=== PATIENT | female | born 1995 ===

== ENCOUNTER 2023-06-05 19:08 | Outpatient (REF) | payer OTHER, SELFPAY ==
[2023-06-05 21:28] LABS: Abs Immature Grans 0.01 10^3/uL (0.0-0.06); Absolute Basophil Count 0.09 10^3/uL (0.0-0.2); Absolute Eosinophil Count 0.06 10^3/uL (0.0-0.7); Absolute Monocyte Count 0.31 10^3/uL (0.1-0.8); Absolute Neutrophil Count 3.92 10^3/uL (1.2-6.7); Basophils % 1.3; Eosinophils % 0.9; HCT 42.3 % (36.0-46.0); HGB 12.8 g/dL (11.2-15.7); Immature Grans % 0.1; Lymphocytes % 34.4; MCH 22.3 pg (27.0-33.0); MCHC 30.3 % (32.0-36.0); MCV 74 fL (80-95); MPV 11.5 fL (8.0-11.0); Monocytes % 4.6; Neutrophils % 58.7; Platelet Count 322 10^3/uL (130-400); RBC 5.75 10^6/uL (3.93-5.22); RDW 14.6 % (11.7-14.6); RDW-SD 38.5 fL; WBC 6.69 10^3/uL (4.4-10.8)
[2023-06-05 21:45] LABS: Diff Comment RBC Morph Reviewed; Microcytosis 1+
[2023-06-05 21:51] LABS: ALT 25 U/L (14-59); AST 11 U/L (15-37); Albumin 3.4 g/dL (3.4-5.0); Alkaline Phosphatase 157 U/L (46-116); Anion Gap 9.3 mmol/L (3-11); BUN 10 mg/dL (7-18); Bilirubin, Total 0.3 mg/dL (0.2-1.0); CO2 24.7 mmol/L (21.0-32.0); CREATININE 0.9 mg/dL (0.55-1.02); Calcium 8.8 mg/dL (8.5-10.1); Chloride 97 mmol/L (98-107); Estimated GFR 88.75 (mL/min/1.73m2); Potassium 4.1 mmol/L (3.5-5.1); Sodium 131 mmol/L (136-145); TSH (W/Ref FT4) 1.25 uIU/mL (0.36-3.74); Total Protein 7.6 g/dL (6.4-8.2)
[2023-06-05 22:03] LABS: Glucose 714 mg/dL (74-106); Hemoglobin A1C > 13.0 % (<5.7)
== END 2023-06-05 19:09 | disposition home or self-care (01) ==
LOC: NCHCN 19:08
PROVIDERS: Visit Provider Family Medicine
DX: E11.9 Type 2 diabetes mellitus without complications (principal); R53.83 Other fatigue; Z13.0 Encounter for screening for diseases of the blood and blood-forming organs and certain disorders involving the immune mechanism
CPT/HCPCS: 80053; 83036; 84443; 85025

== ENCOUNTER 2023-07-03 10:52 | Outpatient (REF) | payer OTHER, SELFPAY ==
[2023-07-03 15:13] LABS: ALT 29 U/L (14-59); AST 14 U/L (15-37); Albumin 3.7 g/dL (3.4-5.0); Alkaline Phosphatase 127 U/L (46-116); Anion Gap 10.9 mmol/L (3-11); BUN 9 mg/dL (7-18); Bilirubin, Total 0.4 mg/dL (0.2-1.0); CO2 25.1 mmol/L (21.0-32.0); CREATININE 0.7 mg/dL (0.55-1.02); Calcium 8.9 mg/dL (8.5-10.1); Chloride 101 mmol/L (98-107); Estimated GFR 119.24 (mL/min/1.73m2); Glucose 426 mg/dL (74-106); Potassium 4.2 mmol/L (3.5-5.1); Sodium 137 mmol/L (136-145)
[2023-07-03 16:07] LABS: Hemoglobin A1C > 13.0 % (<5.7); Vitamin D 25 Total 15.3 ng/mL (30-100)
== END 2023-07-03 10:53 | disposition home or self-care (01) ==
LOC: NCHCN 10:52
PROVIDERS: PCP Family Medicine; Visit Provider Family Medicine
DX: E55.9 Vitamin D deficiency, unspecified (principal); E11.9 Type 2 diabetes mellitus without complications
CPT/HCPCS: 80053; 82306; 83036

== ENCOUNTER 2023-08-08 14:45 | Outpatient (REF) | payer OTHER, SELFPAY | END 2023-08-08 14:46 | disposition home or self-care (01) | LOC: NCHCN 14:45 | PROVIDERS: PCP Family Medicine; Visit Provider Family Medicine | DX: R30.0 Dysuria (principal) | CPT/HCPCS: 87086 ==

== ENCOUNTER 2024-01-22 13:21 | Outpatient (REF) | payer OTHER, SELFPAY ==
--- OUTSIDE RECORDS SUMMARY | 2024-01-22 13:29 | XMS_ITS | Encounter Summary ---
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 Denies urinary sxs. nausea Encounter Details Date Type Department Care Team (Late st Contact Info) Description 01/14/2023 14:10 EST - 01/14/2023 19:32 EST Emergency [facility] [address] [place] [address] Tushar Davalos PA-C [address] [place] [address] Urinary tract infection in female (Primary Dx); Biliary calculus of other site without obstruction; Right ovarian cyst Discharge Disposition: Home or Self Care Social History Tobacco Use Types Packs/Day Years Used Date Smoking Tobacco: Never Assessed Comments Unknown Sex and Gender Information Value Date Recorded Sex Assigned at Not on file Legal Sex Female 13:00 EST Gender Identity Female 05/20/2023 16:58 EDT Sexual Orientation Not on file documented as of this encounter Last Filed Vital Signs Vital Sign Reading Time Taken Comments Blood Pressure 149/102 01/14/2023 1800 EST Pulse 84 01/14/2023 1800 EST Temperature 36.2 ??C (97.1 ??F) 01/14/2023 1326 EST Respiratory Rate 16 01/14/2023 1800 EST Oxygen Saturation 100% 01/14/2023 1800 EST Inhaled Oxygen Concentration - - Weight - - Height - - Body Mass Index - - documented in this encounter Functional Status * Are you deaf or do you have serious difficulty hearing? Answer Date of Assessment Author No 01/14/2023 13:24 EST oDra Lin RN documented as of this encounter Discharge Instructions * Discharge Instructions* Tushar Davalos PA-C - 01/14/2023 18:30 EST You were seen today for left flank pain. Your work-up included laboratory testing and a CT scan of the abdomen and pelvis. Your laboratory results are reassuring and do not suggest a rampant systemic infection. We are treating you with oral antibiotics and recommend follow-up if your symptoms do not improve. If you develop unrelenting nausea or vomiting we recommend returning to the ED for further evaluation. Hydrate with plenty of fluids and get plenty of rest. We will place a call to the care management team to reach out to you to discuss a primary care physician. * Attachments The following attachments cannot be sent through Care Everywhere. * Ovarian Cyst: Functional (Afghan) * UTI (Urinary Tract Infection): Female (Afghan) documented in this encounter Medications at Time of Discharge traMADol (ULTRAM) 50 mg tablet Take 1 Tablet by mouth every 6 hours as needed for Pain. Daily Max: 200 mg 6 Tablet 01/14/2023 cephalexin (KEFLEX) 500 mg capsule Take 1 Capsule by mouth 4 times daily for 7 days. 28 Capsule 01/14/2023 01/21/2023 documented as of this encounter Ordered Prescriptions Prescription Sig Dispense Quantity Refills Last Filled Start Date End Date traMADol (ULTRAM) 50 mg tablet Take 1 Tablet by mouth every 6 hours as needed for Pain. Daily Max: 200 mg 6 Tablet 01/14/2023 cephalexin (KEFLEX) 500 mg capsule Take 1 Capsule by mouth 4 times daily for 7 days. 28 Capsule 01/14/2023 documented in this encounter Discharge Disposition Disposition Code Departure Means Destination Comment s Home or Self Prison documented in this encounter ED Notes * Sydney Melendrez RN - 01/14/2023 1745 EST Pt states pain is much better, has no needs at this time. * Sydney Melendrez RN - 01/14/2023 1605 EST Pt currently sleeping, chest rise and fall observed, call leary within reach. * Sydney Melendrez RN - 01/14/2023 1536 EST Pt c/o 8/10 abdominal/flank pain. MD aware, water and medications given. * Tushar Davalos PA-C - 01/14/2023 1300 EST Emergency Department Visit Medical Decision Making 27-year-old female type II diabetic presenting to the ED with complaints of left flank pain. Pain is described as colicky and radiating from her left flank to her left groin. Denies any hematuria, dysuria. Denies any fevers, chills. Endorses nausea with vomiting. On exam she is nontoxic-appearing yet in mild to moderate distress. She has left-sided CVA tenderness with no abdominal pain with palpation. Labs show no leukocytosis and no elevated CRP. Lipase is normal. Urine specimen is positive for nitrites, leuk esterase, ketones with WBCs between 10 and 50,000, cloudy color and many bacteria. Initiated treatment with 1 g of ceftriaxone and IV fluids. Ketorolac administered. Patient continued to experience pain and was given 2 mg of IV morphine. Given her persistent pain a CT abdomen pelvis was added to the testing. No evidence of any kidney stones or other acute intra-abdominal findings. Patient is new to the area and is unsure whether or not she will stay in the area. She does not have a primary care doctor. We discussed having care management team reach out to inquire if she is in search of a primary care doctor or she will be moving back to her home. Relevant Data as of 01/14/23 2339 Mon Jan 14, 2023 1536 Lipase: 139 [AH] 1536 Sodium(!): 133 [AH] 1536 Glucose, Serum(!): 310 [AH] 1536 Creatinine(!): 0.45 [AH] 1536 C-Reactive Protein: <5.0 [AH] 1536 WBC: 10.17 [AH] 1536 Hemoglobin: 12.4 [AH] 1536 HCT: 38.2 [AH] 1536 WBC, UA(!): 10 - 50 [AH] 1536 Bacteria, UA(!): Many [AH] 1536 Clarity, UA(!): Cloudy [AH] 1536 Glucose, UA(!): 3+ [AH] 1536 Bilirubin, UA(!): 1+ [AH] 1536 Ketones(!): 1+ [AH] 1536 Blood, UA(!): Trace [AH] 1536 Nitrite(!): Positive [AH] 1536 Leuk Esterase(!): Trace [AH] 1638 On reevaluation patient is reporting persistent left flank pain. She had received IV Toradol, IV fluids and IV ceftriaxone to treat a urinary tract infection. Given her persistent pain a CT abdomen pelvis study was obtained to rule out any other acute pathology which could complicate her presentation. [] 2336 IMPRESSION Cholelithiasis. Right ovarian cyst. This can be followed up in 1 month's time with a pelvic ultrasound to assess for stability or resolution. [] Relevant Data User Index [] Tushar Davalos PA-C Laboratory data was reviewed. Medical Decision Making Biliary calculus of other site without obstruction: acute illness or injury Right ovarian cyst: acute illness or injury Urinary tract infection in female: acute illness or injury Amount and/or Complexity of Data Reviewed Labs: ordered. Decision-making details documented in ED Course. Radiology: ordered. Risk Prescription drug management. Final diagnoses: Urinary tract infection in female Biliary calculus of other site without obstruction Right ovarian cyst Disposition: Discharged Chief complaint: Left flank pain ANITRA Marte is a 27 y.o. female with history of type 2 diabetes who presents to the ED for left flank pain rating to her left groin beginning this morning. She states that the pain woke her up fromsleep. Denies any dysuria, hematuria. She does endorse nausea and vomiting and experienced an episode of vomiting here in the emergency department shortly before evaluation. Endorses prior history ofUTIs but states this does not feel similar. No reported fevers. History was provided by: Patient Records reviewed include: None Patient's pertinent PMH, FH, SH were reviewed and edited as necessary. Nursing notes reviewed. A medical screening exam was performed. Physical Exam BP (!) 149/102 Pulse 84 Temp 36.2 ??C (97.1 ??F) Resp 16 SpO2 100% Physical Exam Vitals and nursing note reviewed. Constitutional: General: She is not in acute distress. Appearance: Normal appearance. HENT: Head: Normocephalic and atraumatic. Nose: Nose normal. Mouth/Throat: Mouth: Mucous membranes are moist. Eyes: Extraocular Movements: Extraocular movements intact. Pupils: Pupils are equal, round, and reactive to light. Cardiovascular: Rate and Rhythm: Normal rate and regular rhythm. Pulses: Normal pulses. Heart sounds: Normal heart sounds. Pulmonary: Effort: Pulmonary effort is normal. No respiratory distress. Breath sounds: Normal breath sounds. Abdominal: Palpations: Abdomen is soft. There is no mass. Tenderness: There is no abdominal tenderness. There is left CVA tenderness. There is no right CVA tenderness. Musculoskeletal: General: No swelling or deformity. Normal range of motion. Cervical back: Normal range of motion and neck supple. Skin: General: Skin is warm and dry. Neurological: General: No focal deficit present. Mental Status: She is alert and oriented to person, place, and time. Psychiatric: Mood and Affect: Mood normal. Behavior: Behavior normal. Procedures Procedures documented in this encounter Miscellaneous Notes * Result Encounter Note - Tushar Davalos PA-C - 01/14/2023 193 EST Appropriate tx per sensitivities. documented in this encounter Plan of Treatment Not on file documented as of this encounter Procedures Procedure Name Priority Date/Time Associated Diagnosis Comments CT ABDOMEN PELVIS W CONTRAST STAT 01/14/2023 16:42 EST COMPLETE BLOOD COUNT AND DIFFERENTIAL STAT 01/14/2023 14:58 EST C REACTIVE PROTEIN STAT 01/14/2023 14 :58 EST LIPASE STAT 01/14/2023 14:58 EST COMPREHENSIVE METABOLIC PANEL (CMP) STAT 01/14/2023 14:58 EST POCT TEST, VISUAL READ STAT 01/14/2023 14:39 EST POCT URINE DIPSTICK, VISUAL READ STAT 01/14/2023 14:36 EST UA WITH REFLEX SEDIMENT (CULTURE IF POS) STAT 01/14/2023 14:32 EST UA SEDIMENT + REFLEX TO CULTURE STAT 01/14/2023 14:32 EST BACTERIAL CULTURE, URINE Today 01/14/2023 14:32 EST documented in this encounter Results * CT ABDOMEN PELVIS W CONTRAST (01/14/2023 16:42 EST) Anatomical Region Laterality Modality Body, Abdomen, Pelvis, Abdomen and Pelvis Computed Tomography 01/14/2023 16:2 8 EST Impressions 01/14/2023 17:11 EST Cholelithiasis. ??Right ovarian cyst. ??This can be followed up in 1 month's time with a pelvic ultrasound to assess for stability or resolution. THIS DOCUMENT HAS BEEN ELECTRONICALLY SIGNED BY CHI CERVANTES MD FOR ANY QUESTIONS OR CONCERNS REGARDING THIS REPORT PLEASE CALL [facility] AT [phone] Narrative 01/14/2023 17:11 EST PROCEDURE INFORMATION: Exam: CT Abdomen And Pelvis With Contrast Exam date and time: 01/14/2023 4:28 PM Age: 27 years old Clinical indication: Abdominal pain; Flank; Left; Additional info: Left flank pain, UTI, dm TECHNIQUE: Imaging protocol: Computed tomography of the abdomen and pelvis with contrast. Radiation optimization: All CT scans at this facility use at least one of these dose optimization techniques: automated exposure control; mA and/or kV adjustment per patient size (includes targeted exams where dose is matched to clinical indication); or iterative reconstruction. Contrast material: OMNI 350; Contrast volume: 100 ml; Contrast route: INTRAVENOUS (IV); ?? REPORTING DATA: Count of CT and Cardiac NM exams in prior 12 months: This patient has received 0 known CTs and 0 known cardiac nuclear medicine studies in the 12 months prior to the current study. COMPARISON: No relevant prior studies available. FINDINGS: Lungs: The visualized lung bases are within normal limits. Heart: The visualized portions of the heart and pericardium within normal limits. Liver: The liver is within normal limits. Gallbladder and bile ducts: There are innumerable gallstones within the gallbladder. Pancreas: The pancreas is unremarkable. Spleen: The spleen is unremarkable. Adrenal glands: The adrenal glands are within normal limits. Kidneys and ureters: The kidneys are unremarkable. Stomach and bowel: Unremarkable. No obstruction. No mucosal thickening. Appendix: No evidence of appendicitis. Intraperitoneal space: Unremarkable. No free air. No significant fluid collection. Vasculature: Unremarkable. No abdominal aortic aneurysm. Lymph nodes: ??No enlarged lymph nodes. Urinary bladder: The urinary bladder is within normal limits. Reproductive: The uterus is unremarkable. The left ovary is within normal limits. There is a right ovarian cyst measuring 4.4 x 4.3 cm. There are slight degenerative changes of both hips. Bones/joints: There are slight degenerative changes of the thoracic and lumbar spines. Soft tissues: Unremarkable. Procedure Note Chi Cervantes MD - 01/14/2023 PROCEDURE INFORMATION: Exam: CT Abdomen And Pelvis With Contrast Exam date and time: 01/14/2023 4:28 PM Age: 27 years old Clinical indication: Abdominal pain; Flank; Left; Additional info: Left flank pain, UTI, dm TECHNIQUE: Imaging protocol: Computed tomography of the abdomen and pelvis with contrast. Radiation optimization: All CT scans at this facility use at least one of these dose optimization techniques: automated exposure control; mA and/or kV adjustment per patient size (includes targeted exams where dose is matched to clinical indication); or iterative reconstruction. Contrast material: OMNI 350; Contrast volume: 100 ml; Contrast route: INTRAVENOUS (IV); REPORTING DATA: Count of CT and Cardiac NM exams in prior 12 months: This patient has received 0 known CTs and 0 known cardiac nuclear medicine studies in the 12 months prior to the current study. COMPARISON: No relevant prior studies available. FINDINGS: Lungs: The visualized lung bases are within normal limits. Heart: The visualized portions of the heart and pericardium within normal limits. Liver: The liver is within normal limits. Gallbladder and bile ducts: There are innumerable gallstones within the gallbladder. Pancreas: The pancreas is unremarkable. Spleen: The spleen is unremarkable. Adrenal glands: The adrenal glands are within normal limits. Kidneys and ureters: The kidneys are unremarkable. Stomach and bowel: Unremarkable. No obstruction. No mucosal thickening. Appendix: No evidence of appendicitis. Intraperitoneal space: Unremarkable. No free air. No significant fluid collection. Vasculature: Unremarkable. No abdominal aortic aneurysm. Lymph nodes: No enlarged lymph nodes. Urinary bladder: The urinary bladder is within normal limits. Reproductive: The uterus is unremarkable. The left ovary is within normal limits. There is a right ovarian cyst measuring 4.4 x 4.3 cm. There are slight degenerative changes of both hips. Bones/joints: There are slight degenerative changes of the thoracic and lumbar spines. Soft tissues: Unremarkable. IMPRESSION Cholelithiasis. Right ovarian cyst. This can be followed up in 1 month's time with a pelvic ultrasound to assess for stability or resolution. THIS DOCUMENT HAS BEEN ELECTRONICALLY SIGNED BY CHI CERVANTES MD FOR ANY QUESTIONS OR CONCERNS REGARDING THIS REPORT PLEASE CALL [facility] [phone] Tushar Davalos PA-C IMG CT ORDERABLES Final Result * LIPASE (01/14/2023 14:58 EST) Lipase 139 <251 U/L 01/14/2023 15:20 EST [facility] Blood VENOUS BLOOD / Unknown Venipuncture / Unknown 01/14/2023 14:58 EST 01/14/2023 15:03 EST Tushar Hare PA-C CHEMISTRY & BLOOD GAS ORDERABLES Final Result [facility] [address] [place] [address] * C REACTIVE PROTEIN (01/14/2023 14:58 EST) Pathologist [facility] C-Reactive Protein <5.0 <10.0 mg/L 01/14/2023 15:20 [facility] Blood VENOUS BLOOD / Unknown Venipuncture / Unknown 01/14/2023 14:58 EST 01/14/2023 15:03 EST Tushar Davalos PA-C CHEMISTRY & BLOOD GAS ORDERABLES Final Result [facility] [address] [place] [address] * (ABNORMAL) COMPREHENSIVE METABOLIC PANEL (CMP) (01/14/2023 14:58 EST) [facility] Sodium 133(L) 136 - 145 mmol/L 01/14/2023 15:20 [facility] Potassium 4.4 3.5 - 5.0 mmol/L 01/14/2023 15:20 [facility] Chloride 98 96 - 110 mmol/L 01/14/2023 15:20 [facility] CO2 Total 27 22 - 32 mmol/L 01/14/2023 15:20 [facility] Glucose 310(H) 70 - 99 mg/dl 01/14/2023 15:20 [facility] BUN 10 10 - 26 mg/dL 01/14/2023 15:20 [facility] Creatinine 0.45(L) 0.52 - 1.04 mg/dL 01/14/2023 15:20 [facility] eGFR 133 >60 mL/min/1.7 3m2 01/14/2023 15:20 [facility] Total Protein 7.3 6.3 - 8.2 g/dL 01/14/2023 15:20 [facility] Albumin 3.9 3.4 - 4.9 g/dL 01/14/2023 15:20 [facility] Alkaline Phosphatase 80 38 - 126 U/L 01/14/2023 15:20 [facility] AST 17 15 - 46 U/L 01/14/2023 15:20 [facility] ALT 22 <35 U/L 01/14/2023 15:20 [facility] Bilirubin, Total 0.6 <1.4 mg/dL 01/15/20 15:20 [facility] Calcium 8.7 8.5 - 10.5 mg/dL 01/14/2023 15:20 [facility] Albumin/Globulin Ratio 1.1 1.0 - 2.5 g/dL 01/14/2023 15:20 [facility] Anion Gap 8 5 - 14 mmol/L 01/14/2023 15:20 [facility] Blood VENOUS BLOOD / Unknown Venipuncture / Unknown 01/14/2023 14:58 EST 01/14/2023 15:03 EST us Tushar Davalos PA-C CHEMISTRY & BLOOD GAS ORDERABLES Final Result Performing Organization Address City/State/[facility] Co de Phone Number [facility] [address] [place] [address] * (ABNORMAL) COMPLETE BLOOD COUNT AND DIFFERENTIAL (01/14/2023 14:58 EST) WBC 10.17 4.00 - 12.40 K/cmm 01/14/2023 15:08 [facility] RBC 5.13(H) 3.86 - 5.04 M/cmm 01/14/2023 15:08 [facility] Hemoglobin 12.4 11.6 - 15.2 g/dL 01/14/2023 15:08 [facility] HCT 38.2 34.9 - 44.4 % 01/14/2023 15:08 [facility] MCV 75(L) 81 - 98 fL 01/14/2023 15:08 [facility] MCH 24.2(L) 26.7 - 33.3 pg 01/14/2023 15:08 [facility] Hypochromia 1+ 01/14/2023 15:08 [facility] MCHC 32.5 32.1 - 35.9 g/dL 01/14/2023 15:08 [facility] RDW-CV 14.2 <14.7 % 01/14/2023 15:08 [facility] RDW-SD 37.8 <50.4 fl 01/14/2023 15:08 [facility] Anisocytosis 01/14/2023 15:08 [facility] PLT 338 141 - 377 K/cmm 01/14/2023 15:08 [facility] MPV 11.0 9.5 - 12.7 fL 01/14/2023 15:08 [facility] % Neutrophils 80.4 % 01/14/2023 15:08 [facility] % Lymphocytes 15.3 % 01/14/2023 15:08 [facility] % Monocytes 3.2 % 01/14/2023 15:08 [facility] % Eosinophils 0.3 % 01/14/2023 15:08 [facility] % Basophils 0.5 % 01/14/2023 15:08 [facility] % Immature Grans 0.3 % 01/15/20 15:08 [facility] Absolute Neutrophils 8.17 2.20 - 8.85 K/cmm 01/14/2023 15:08 [facility] Absolute Lymphocytes 1.56 1.09 - 3.30 K/cmm 01/14/2023 15:08 [facility] Absolute Monocytes 0.33 0.10 - 0.80 K/cmm 01/14/2023 15:08 [facility] Absolute Eosinophils 0.03 0.03 - 0.61 K/cmm 01/14/2023 15:08 [facility] ABS Basophils 0.05 0.01 - 0.11 K/cmm 01/14/2023 15:08 [facility] Absolute Immature Grans 0.03 0.00 - 0.06 K/cmm 01/14/2023 15:08 [facility] Type of Differential: Auto 01/14/2023 15:08 [facility] Blood VENOUS BLOOD / Unknown Venipuncture / Unknown 01/14/2023 14:58 EST 01/14/2023 15:03 EST [employer] PACKAGES & DNA PROBE ORDERABLES Final Result [facility] [address] [place] [address] * POCT TEST, VISUAL READ (01/14/2023 14:39 EST) Test, Urine, POC Negative Negative Control Line Present Yes Background Clear? Yes Urine URINE SPECIMEN OBTAINED BY CLEAN CATCH PROCEDURE / Unknown 01/14/2023 14:39 EST [employer] POINT OF CARE TEST ORDERABLES Fi nal Result * (ABNORMAL) POCT URINE DIPSTICK, VISUAL READ (01/14/2023 14:36 EST) Color, UA Yellow Yellow, Colorless Clarity, UA Cloudy(A) Clear Glucose, UA 3+(A) Negative mg/dL Bilirubin, UA Negative Negative Ketones, UA 1+(A) Negative mg/dL Spec Grav, UA 1.020 1.001 - 1.030 Blood, UA Trace(A) Negative pH, UA 6.0 <=8.5 Protein, UA Negative Negative mg/dL Urobilinogen, UA 0.2 0.2 - 1.0 E.U./dL Nitrite, UA Positive(A) Negative Leuk Esterase Trace(A) Negative Comment Urine URINE SPECIMEN OBTAINED BY CLEAN CATCH PROCEDURE / Unknown 01/14/2023 14:36 EST [employer] POINT OF CARE TEST ORDERABLES Fi nal Result * (ABNORMAL) BACTERIAL CULTURE, URINE (01/14/2023 14:32 EST) Pathologist [facility] Organism ID Greater than 100,000 CFU/ml Escherichia coli(A) VITEK SUSCEPTIBILITY 01/16/2023 7:40 EST [facility] Comment: Cefazolin susceptibility results can be used to predict susceptibility results for the following oral cephalosporins when used for therapy of uncomplicated UTI's due to E.coli, K.pneumoniae and P.mirabilis: cefaclor, cefdinir, cefpodoxime, cefprozil, cefuroxime, cephalexin and loracarbef. ??Please note that only cefdinir, cefpodoxime, cefuroxime and cephalexin are on the [facility] inpatient formulary. Urine URINE SPECIMEN OBTAINED BY CLEAN CATCH PROCEDURE / Unknown Urine Collect / Unknown 01/14/2023 14:32 EST 01/14/2023 15:01 EST Narrative Organism Antibiotic Method Susceptibility Escherichia coli Amoxicillin Clavulan ic acid VITEK SUSCEPTIBILITY <=2 ug/mL: Susceptible Escherichia coli Ampicillin VITEK SUSCEPTIBILITY <=2 ug/mL: Susceptible Escherichia coli Ampicillin Sulbactam VITEK SUSCEPTIBI LITY <=2 ug/mL: Susceptible Escherichia coli Cefazolin VITEK SUSCEPTIBILITY <=4 ug/mL: Susceptible Escherichia coli Cefepime VITEK SUSCEPTIBILITY <=1 ug/mL: Susceptible Escherichia coli Ceftriaxone VITEK SUSCEPTIBILITY <=1 ug/mL: Susceptible Escherichia coli Ciprofloxacin VITEK SUSCEPTIBILITY <=0.25 ug/mL: Susceptible Escherichia coli Ertapenem VITEK SUSCEPTIBILITY <=0.5 ug/mL: Susceptible Escherichia coli Gentamicin VITEK SUSCEPTIBILITY <=1 ug/mL: Susceptible Escherichia coli Levofloxacin VITEK SUSCEPTIBILITY <=0.12 ug/mL: Susceptible Escherichia coli Nitrofurantoin VITEK SUSCEPTIBILITY 32 ug/mL: Susceptible Escherichia coli Piperacillin Tazobactam VITEK SUSCEPT IBILITY <=4 ug/mL: Susceptible Escherichia coli Tobramycin VITEK SUSCEPTIBILITY <=1 ug/mL: Susceptible Escherichia coli Trimethoprim-Sulfame thox azole VITEK SUSCEPTIBILITY <=20 ug/mL: Susceptible us Tushar Davalos PA-C MICROBIOLOGY - GENERAL ORDERABLE S Final Result [facility] [address] [place] [address] * (ABNORMAL) UA SEDIMENT + REFLEX TO CULTURE (01/14/2023 14:32 EST) Urine RBC Count, Manual 0 - 2 0 - 2 Cells/HPF 01/14/2023 15:02 EST [facility] Urine WBC Count 10 - 50(A) 0 - 3 Cells/HPF 01/14/2023 15:02 [facility] Urine Squamous Count, Manual None Seen None Seen Cells/HPF 01/14/2023 15:02 [facility] Urine Hyaline Cast Count, Manual <=10 <=10 Casts/LPF 01/14/2023 15:02 [facility] Urine Bacteria Count, Manual Many(A) None Seen Bacteria/H PF 01/14/2023 15:02 [facility] Urine URINE SPECIMEN OBTAINED BY CLEAN CATCH PROCEDURE / Unknown Urine Collect / Unknown 01/14/2023 14:32 EST 01/14/2023 14:35 EST [facility] - 01/14/2023 15:02 [facility] Urine Sediment Analysis results are unreliable on urines that are unrefrigerated for >2 hrs or refrigerated >8 hrs. A Urine Culture test has been reflexively ordered based on result criteria from the Urine Sediment Analysis. us Tushar Davalos PA-C URINALYSIS ORDERABLES Final Resu lt [facility] [address] [place] [address] * (ABNORMAL) UA CASCADE TO CULTURE (01/14/2023 14:32 EST) Color UA Yellow Colorless, Yellow 01/14/2023 15:00 [facility] Clarity UA Cloudy(A) Clear 01/14/2023 15:00 [facility] Glucose UA 3+(A) Negative mg/dL 01/14/2023 15:00 [facility] Bilirubin UA 1+(A) Negative 01/14/2023 15:00 [facility] Ketones UA 1+(A) Negative 01/14/2023 15:00 [facility] Specific [place], Urine 1.020 1.001 - 1.030 01/14/2023 15:00 [facility] Blood UA Trace(A) Negative 01/14/2023 15:00 [facility] pH, UA 6.0 <8.5 01/14/2023 15:00 EST [facility] Protein UA Negative Negative mg/dL 01/14/2023 15:00 EST [facility] Urobilinogen UA 0.2 0.2-1.0 mg/dL mg/dL 01/14/2023 15:00 EST [facility] Nitrite UA Positive(A) Negative 01/14/2023 15:00 EST [facility] Leukocyte Esterase UA Negative Negative 01/14/2023 15:00 EST [facility] Urine URINE SPECIMEN OBTAINED BY CLEAN CATCH PROCEDURE / Unknown Urine Collect / Unknown 01/14/2023 14:32 EST 01/14/2023 14:35 EST us Tushar Davalos PA-C URINALYSIS ORDERABLES Final Resu lt [facility] [address] [place] [address] documented in this encounter Visit Diagnoses Diagnosis Urinary tract infection in female- Primary Biliary calculus of other site without obstruction Right ovarian cyst Other and unspecified ovarian cyst documented in this encounter Administered Medications Inactive Administered Medications - up to 3 most recent administrations Medication Order MAR Action Action Date Dose Rate Site cefTRIAXone (ROCEPHIN) 1,000 mg in sodium chloride (NS MBP) 50 mL IVPB 1,000 mg, intravenous, Administer over 30 Minutes, NOW X1, 1 dose, On Sat01/14/23 at 1530, Type of Therapy: Empiric, Suspected Indication (Select all that apply): UTI or pyelonephritis, STAT New Bag 01/14/2023 15:35 EST 1,000 mg iohexoL (OMNIPAQUE 350) solution 100 mL 100 mL, intravenous, Once in imaging, 1 dose, Starting on Sat01/14/23 at 1633, Until Sat01/14/23 at 1643, Routine Given 01/14/2023 16:43 EST 100 mL ketOROLAC (TORADOL) injection 15 mg 15 mg, intravenous, NOW X1, 1 dose, On Sat01/14/23 at 1600, STAT Given 01/14/2023 15:43 EST 15 mg morphine PF injection 2 mg 2 mg, intravenous, NOW X1, 1 dose, On Sat01/14/23 at 1700, STAT Given 01/14/2023 16:56 EST 2 mg ondansetron (PF) (ZOFRAN) injection 4 mg 4 mg, intravenous, NOW X1, 1 dose, On Sat01/14/23 at 1500, STAT Given 01/14/2023 15:02 EST 4 mg sodium chloride 0.9 % BOLUS 1,000 mL 1,000 mL, intravenous, NOW X1, 1 dose, On Sat01/14/23 at 1500, STAT New Bag 01/14/2023 15:03 EST 1,000 mL documented in this encounter Active and Recently Administered Medications Times are shown in EST. Scheduled Medication Order 01/12/2023 01/13/2023 01/14/2023 cefTRIAXone (ROCEPHIN) 1,000 mg in sodium chloride (NS MBP) 50 mL IVPB (COMPLETED) 1,000 mg, intravenous, Administer over 30 Minutes, NOW X1, 1 dose, On Sat01/14/23 at 1530, Type of Therapy: Empiric, Suspected Indication (Select all that apply): UTI or pyelonephritis, STAT 1535 (New Bag - Prov ider: Sydney Melendrez RN)1544 (Completed - Provider: Sydney Melendrez RN) iohexoL (OMNIPAQUE 350) solution 100 mL (COMPLETED) 100 mL, intravenous, Once in imaging, 1 dose, Starting on Sat01/14/23 at 1633, Until Sat01/14/23 at 1643, Routine 1643 (Given - Provid er: Ryann Cheng) ketOROLAC (TORADOL) injection 15 mg (COMPLETED) 15 mg, intravenous, NOW X1, 1 dose, On Sat01/14/23 at 1600, STAT 1543 (Given - Provid er: Sydney Melendrez, CHRISTIANO) morphine PF injection 2 mg (COMPLETED) 2 mg, intravenous, NOW X1, 1 dose, On Sat01/14/23 at 1700, STAT 1656 (Given - Provid er: Sydney Melendrez RN) ondansetron (PF) (ZOFRAN) injection 4 mg (COMPLETED) 4 mg, intravenous, NOW X1, 1 dose, On Sat01/14/23 at 1500, STAT 1502 (Given - Provid er: Delilah Howard RN) sodium chloride 0.9 % BOLUS 1,000 mL (COMPLETED) 1,000 mL, intravenous, NOW X1, 1 dose, On 01/14/23 at 1500, STAT 1503 (New Bag - Prov ider: Sydney Melendrez, RN)1604 (Completed - Provider: Sydney Melendrez, CHRISTIANO) documented in this encounter Care Teams Automatic Die Cutting Machine Operator Relationship Specialty Start Date End Date Out Of Area, Pcp-Mp PCP - General 01/14/23 09/28/23 documented as of this encounter
--- OUTSIDE RECORDS SUMMARY | 2024-01-22 13:29 | XMS_ITS | Encounter Summary ---
Author Organization [facility] Address [address] [place] [address] Care Team Providers Care Brine Tank Tender Name Role Phone Sanam Primary Care Provider [phone] Encounter Details Date Type Department Care Team (Late st Contact Info) Description 11/14/2023 9:55 EDT Phlebotomy Only [facility] - Outpatient Phlebotomy Drawing [address] [place] [address] [facility], [facility] [place] Vitamin D deficiency, unspecified; Type 2 diabetes mellitus without complications ([facility]); Anemia, unspecified Social History Tobacco Use Types Packs/Day Years Used Date Smoking Tobacco: Never Smokeless Tobacco: Never Alcohol Use Standard Drinks/Week Comments Not Currently 2 (1 standard drink = 0.6 oz pur e alcohol) Comments Unknown Sex and Gender Information Value Date Recorded Sex Assigned at Not on file Legal Sex Female 13:00 EST Gender Identity Female 05/20/2023 16:58 EDT Sexual Orientation Not on file documented as of this encounter Functional Status * Are you deaf or do you have serious difficulty hearing? Answer Date of Assessment Author No 01/14/2023 13:24 EST Dora Lin RN documented as of this encounter Plan of Treatment Not on file documented as of this encounter Procedures Procedure Name Priority Date/Time Associated Diagnosis Comments VITAMIN D (25,OH) Routine 11/14/2023 9:5 9 EDT Vitamin D deficiency, unspecified COMPLETE BLOOD COUNT Routine 11/14/2023 9:59 EDT Anemia, unspecified HEMOGLOBIN A1C Routine 11/14/2023 9:59 EDT Type 2 diabetes mellitus without complications ([facility]) COMPREHENSIVE METABOLIC PANEL (CMP) Routine 11/14/2023 9:59 EDT Type 2 diabetes mellitus without complications ([facility]) documented in this encounter Results * (ABNORMAL) COMPLETE BLOOD COUNT (11/14/2023 9:59 EDT) WBC 9.00 4.00 - 12.40 K/cmm 11/14/2023 10:49 [facility] RBC 5.97(H) 3.86 - 5.04 M/cmm 11/14/2023 10:49 [facility] Hemoglobin 12.5 11.6 - 15.2 g/dL 11/14/2023 10:49 [facility] HCT 42.2 34.9 - 44.4 % 11/14/2023 10:49 [facility] MCV 71(L) 81 - 98 fL 11/14/2023 10:49 [facility] MCH 20.9(L) 26.7 - 33.3 pg 11/14/2023 10:49 [facility] Hypochromia 2+ 11/14/2023 10:49 [facility] MCHC 29.6(L) 32.1 - 35.9 g/dL 11/14/2023 10:49 [facility] RDW-CV 17.0(H) <14.7 % 11/14/2023 10:49 [facility] RDW-SD 41.0 <50.4 fl 11/14/2023 10:49 [facility] Anisocytosis 1+ 11/14/2023 10:49 [facility] PLT 386(H) 141 - 377 K/cmm 11/14/2023 10:49 [facility] MPV 10.8 9.5 - 12.7 fL 11/14/2023 10:49 EDT [facility] Blood VENOUS BLOOD / Unknown Venipuncture / Unknown 11/14/2023 9:59 EDT 11/14/2023 10:46 EDT us Sanam Kwame HEMATOLOGY & PF4 ORDERABLES Anali l Result [facility] [address] [place] [address] * (ABNORMAL) COMPREHENSIVE METABOLIC PANEL (CMP) (11/14/2023 9:59 EDT) Sodium 137 136 - 145 mmol/L 11/14/2023 11:00 [facility] Potassium 4.4 3.5 - 5.0 mmol/L 11/14/2023 11:00 [facility] Chloride 103 96 - 110 mmol/L 11/14/2023 11:00 [facility] CO2 Total 25 22 - 32 mmol/L 11/14/2023 11:00 [facility] Glucose 212(H) 70 - 99 mg/dl 11/14/2023 11:00 [facility] BUN 15 10 - 26 mg/dL 11/14/2023 11:00 [facility] Creatinine 0.47(L) 0.52 - 1.04 mg/dL 11/14/2023 11:00 [facility] eGFR 131 >60 mL/min/1.7 3m2 11/14/2023 11:00 [facility] Total Protein 7.2 6.3 - 8.2 g/dL 11/14/2023 11:00 [facility] Albumin 4.0 3.4 - 4.9 g/dL 11/14/2023 11:00 [facility] Alkaline Phosphatase 116 38 - 126 U/L 11/14/2023 11:00 [facility] AST 19 15 - 46 U/L 11/14/2023 11:00 [facility] ALT 22 <35 U/L 11/14/2023 11:00 EDT [facility] Bilirubin, Total <0.5 <1.4 mg/dL 11/14/19 11:00 EDT [facility] Calcium 9.2 8.5 - 10.5 mg/dL 11/14/2023 11:00 EDT [facility] Albumin/Globulin Ratio 1.3 1.0 - 2.5 11/14/2023 11:00 EDT [facility] Anion Gap 9 5 - 14 mmol/L 11/14/2023 11:00 EDT [facility] Blood VENOUS BLOOD / Unknown Venipuncture / Unknown 11/14/2023 9:59 EDT 11/14/2023 10:23 EDT Sanam Kwame CHEMISTRY & BLOOD GAS ORDERABLES Final Result Performing Organization Address City/[facility] Co de Phone Number [facility] [address] [place] [address] * (ABNORMAL) HEMOGLOBIN A1C (11/14/2023 9:59 EDT) Hemoglobin A1c 11.4(H) <5.7 % 11/14/2023 23:20 T [facility] Comment: Glycemic Status References: Normal: ??<5.7% Pre-Diabetes: ??5.7% - 6.4% Diagnostic of Diabetes: ??> or = 6.5% (if confirmed) Est Avg Glucose 280 mg/dL 23:20 [facility] Comment:The eAG represents t he A1c result expressed as average glucose in mg/dL. Blood VENOUS BLOOD / Unknown Venipuncture / Unknown 11/14/2023 9:59 EDT 11/14/2023 10:46 EDT us Sanam Kwame CHEMISTRY & BLOOD GAS ORDERABLES Final Result Performing Organization Address City/[facility]/ZIP Co de Phone Number [facility] [address] [place], [place] [phone] * (ABNORMAL) VITAMIN D (25,OH) (11/14/2023 9:59 EDT) 25OH Vitamin D Tot 15(L) 30 - 100 ng/mL 11/14/2023 11:19 EDT [facility] Blood VENOUS BLOOD / Unknown Venipuncture / Unknown 11/14/2023 9:59 EDT 11/14/2023 10:23 EDT Sanam Puente CHEMISTRY & BLOOD GAS ORDERABLES Final Result Performing Organization Address [facility] Co de Phone Number [facility] [address] [place] [address] documented in this encounter Visit Diagnoses Diagnosis Vitamin D deficiency, unspecified Type 2 diabetes mellitus without complications ([facility]) Type II or unspecified type diabetes mellitus without mention of complication, not stated as uncontrolled Anemia, unspecified documented in this encounter Care Teams Brine Tank Tender Relationship Specialty Start Date End Date Sanam Puente [address] [place] [phone] PCP - General Family Medicine - Primary Care 09/29/23 documented as of this encounter
--- OUTSIDE RECORDS SUMMARY | 2024-01-22 13:29 | XMS_ITS | Encounter Summary ---
Author Organization [facility] Address [address] [place] [address] Care Team Providers Care Benzene Still Utility Operator Name Role Phone Out Of Area, Pcp-Mp Primary Care Provider Verónica lopez Encounter Details Date Type Department Care Team (Latest Contact Info) Description 08/09/2023 Transcribe Orders [facility] - Main [place] [address] [place] [id number] Kwame, Sanam [address] [place] [address] Vitamin D deficiency, unspecified (Primary Dx); Type 2 diabetes mellitus without complications ([facility]); Anemia, unspecified Social History Tobacco Use Types [...] on file documented as of this encounter Results * (ABNORMAL) COMPLETE BLOOD COUNT (11/14/2023 9:59 EDT) WBC 9.00 4.00 - 12.40 K/cmm 11/14/2023 10:49 EDT [facility] RBC 5.97(H) 3.86 - 5.04 M/cmm 11/14/2023 10:49 [facility] Hemoglobin 12.5 11.6 - 15.2 g/dL 11/14/2023 10:49 [facility] HCT 42.2 34.9 - 44.4 % 11/14/2023 10:49 [facility] MCV 71(L) 81 - 98 fL 11/14/2023 10:49 [facility] MCH 20.9(L) 26.7 - 33.3 pg 11/14/2023 10:49 [facility] Hypochromia 2+ 11/14/2023 10:49 [facility] MCHC 29.6(L) 32.1 - 35.9 g/dL 11/14/2023 10:49 [facility] RDW-CV 17.0(H) <14.7 % 11/14/2023 10:49 [facility] RDW-SD 41.0 <50.4 fl 11/14/2023 10:49 [facility] Anisocytosis 1+ 11/14/2023 10:49 [facility] PLT 386(H) 141 - 377 K/cmm 11/14/2023 10:49 [facility] MPV 10.8 9.5 - 12.7 fL 11/14/2023 10:49 [facility] Blood VENOUS BLOOD / Unknown Venipuncture / Unknown 11/14/2023 9:59 EDT 11/14/2023 10:46 EDT us Sanam Kwame HEMATOLOGY & PF4 ORDERABLES Anali l Result [facility] [address] [place], [place] [id number] * (ABNORMAL) COMPREHENSIVE METABOLIC PANEL (CMP) (11/14/2023 9:59 EDT) Sodium 137 136 - 145 mmol/L 11/14/2023 11:00 [facility] Potassium 4.4 3.5 - 5.0 mmol/L 11/14/2023 11:00 [facility] Chloride 103 96 - 110 mmol/L 11/14/2023 11:00 [facility] CO2 Total 25 22 - 32 mmol/L 11/14/2023 11:00 [facility] Glucose 212(H) 70 - 99 mg/dl 11/14/2023 11:00 [facility] BUN 15 10 - 26 mg/dL 11/14/2023 11:00 [facility] Creatinine 0.47(L) 0.52 - 1.04 mg/dL 11/14/2023 11:00 [facility] eGFR 131 >60 mL/min/1.7 3m2 11/14/2023 11:00 [facility] Total Protein 7.2 6.3 - 8.2 g/dL 11/14/2023 11:00 [facility] Albumin 4.0 3.4 - 4.9 g/dL 11/14/2023 11:00 [facility] Alkaline Phosphatase 116 38 - 126 U/L 11/14/2023 11:00 [facility] AST 19 15 - 46 U/L 11/14/2023 11:00 [facility] ALT 22 <35 U/L 11/14/2023 11:00 [facility] Bilirubin, Total <0.5 <1.4 mg/dL 11/14/19 11:00 [facility] Calcium 9.2 8.5 - 10.5 mg/dL 11/14/2023 11:00 [facility] Albumin/Globulin Ratio 1.3 1.0 - 2.5 11/14/2023 11:00 [facility] Anion Gap 9 5 - 14 mmol/L 11/14/2023 11:00 [facility] Blood VENOUS BLOOD / Unknown Venipuncture / Unknown 11/14/2023 9:59 EDT 11/14/2023 10:23 EDT us Sanam Kwame CHEMISTRY & BLOOD GAS ORDERABLES Final Result Performing Organization Address City/[facility]/ZIP Co de Phone Number [facility] [address] [place] [address] * (ABNORMAL) HEMOGLOBIN A1C (11/14/2023 9:59 EDT) Hemoglobin A1c 11.4(H) <5.7 % 11/14/2023 23:20 EDT [facility] Comment: Glycemic Status References: Normal: ??<5.7% Pre-Diabetes: ??5.7% - 6.4% Diagnostic of Diabetes: ??> or = 6.5% (if confirmed) Est Avg Glucose 280 mg/dL 23:20 EDT [facility] Comment:The eAG represents t he A1c result expressed as average glucose in mg/dL. Blood VENOUS BLOOD / Unknown Venipuncture / Unknown 11/14/2023 9:59 EDT 11/14/2023 10:46 EDT us Sanam Kwame CHEMISTRY & BLOOD GAS ORDERABLES Final Result [facility] [address] [place] [address] * (ABNORMAL) VITAMIN D (25,OH) (11/14/2023 9:59 EDT) 25OH Vitamin D Tot 15(L) 30 - 100 ng/mL 11/14/2023 11:19 EDT [facility] Blood VENOUS BLOOD / Unknown Venipuncture / Unknown 11/14/2023 9:59 EDT 11/14/2023 10:23 EDT us Sanam Kwame CHEMISTRY & BLOOD GAS ORDERABLES Final Result [facility] [address] [place] [address] documented in this encounter Visit Diagnoses Diagnosis Vitamin D deficiency, unspecified- Primary Type 2 diabetes mellitus without complications ([facility]) Type II or unspecified type diabetes mellitus without mention of complication, not stated as uncontrolled Anemia, unspecified documented in this encounter Care Teams Benzene Still Utility Operator Relationship Specialty Start Date End Date Out Of Area, Pcp-Mp PCP - General 01/14/23 09/28/23 documented as of this encounter
--- OUTSIDE RECORDS SUMMARY | 2024-01-22 13:29 | XMS_ITS | Clinical Summary ---
Author Organization [facility] Address [address] [place] [address] Care Team Providers Care Party Plan Salesperson Name Role Phone Sanam Puente Primary Care Provider [phone] Allergies No known active allergies Medications traMADol (ULTRAM) 50 mg tablet Take 1 Tablet by mouth every 6 hours as needed for Pain. Daily Max: 200 mg 6 Tablet 3 Active Additional Information Patient not taking.Reported on 09/29/2023 atorvastatin (LIPITOR) 20 mg tablet Take 1 Tablet by mouth daily. Active empagliflozin (JARDIANCE) 25 mg tablet Take 1 Tablet by mouth daily. Active norethindrone-e thinyl estradiol (NECON) 0.5-35 mg-mcg per tablet Take 1 Tablet by mouth daily. Active Active Problems Problem Noted Date Diagnosed Date Obesity 07/25/2023 Type 2 diabetes mellitus wit h hyperglycemia, without long-term current use of insulin ([facility]) 07/25/2023 Hyperlipidemia 07/25/2023 Encounters Date Type Department Care Team Description 11/14/2023 9:[address] [facility] - Outpatient Phlebotomy Drawing [address] [place] [address] Lab, [facility] Vitamin D deficiency, unspecified; Type 2 diabetes mellitus without complications ([facility]); Anemia, unspecified from Last 3 Months Immunizations Name Administration Dates Next Due Covid-19 mRNA Vaccine (MODER NA COVID-19) PF 0.5 ml IM (12 yrs+) 07/20/2021 Covid-19 mRNA Vaccine (PFIZE R COVID-19) PF 0.3 ml IM (12 yrs+) 02/10/2021,06/15/2020,05/25/2020 Covid-19 mRNA-LNP Bivalent V accine ([facility] BIVALENT VACCINE) PF 0.3 mL IM (12 yrs+) 07/25/2022 Medical History Medical History Date Comments Diabetes mellitus ([facility]) High cholesterol Social History Tobacco Use Types Packs/Day Years Used Date Smoking Tobacco: Never Smokeless Tobacco: Never Tobacco Cessation:Counseling Given: Not Answered Alcohol Use Standard Drinks/Week Comments Not Currently 2 (1 standard drink = 0.6 oz pur e alcohol) Comments Unknown Sex and Gender Information Value Date Recorded Sex Assigned at Not on file Legal Sex Female 13:00 EST Gender Identity Female 05/20/2023 16:58 EDT Sexual Orientation Not on file Obstetrics History Last Filed Vital Signs Vital Sign Reading Time Taken Comments Blood Pressure 141/85 09/29/2023 1025 EDT Pulse 89 09/29/2023 1025 EDT Temperature 36.5 ??C (97.7 ??F) 09/29/2023 1025 EDT Respiratory Rate 15 09/29/2023 1025 EDT Oxygen Saturation 99% 09/29/2023 1025 EDT Inhaled Oxygen Concentration - - Weight 111.1 kg (245 lb) 05/20/2023 1647 EDT Height 165.1 cm (5' 5) 05/20/2023 1647 EDT Body Mass Index 40.77 05/20/2023 1647 EDT Plan of Treatment Health Maintenance Due Date Last Done Comments Eye Exam 1993 Foot Exam 1993 Hepatitis C Screen 1993 Microalbumin/Creatinine Ratio 1993 Lipid Profile Screening (Cholesterol) 1996 Hepatitis B Vaccine (1 of 3 - 19+ 3-dose series) 2012 COVID-19 Vaccine (2023-2 5 season) 2023 07/25/2022, 07/20/2021, 02/10/2021, Additional history exists Hemoglobin A1C (Ha1C) 05/13/2024 11/14/2023 Procedures Procedure Name Priority Date/Time Associated Diagnosis Comments COMPLETE BLOOD COUNT Routine 11/14/2023 9:59 EDT Anemia, unspecified COMPREHENSIVE METABOLIC PANEL (CMP) Routine 11/14/2023 9:59 EDT Type 2 diabetes mellitus without complications (HCC-CMS) HEMOGLOBIN A1C Routine 11/14/2023 9:59 EDT Type 2 diabetes mellitus without complications ([facility]) VITAMIN D (25,OH) Routine 11/14/2023 9:5 9 EDT Vitamin D deficiency, unspecified from Last 3 Months Results * (ABNORMAL) VITAMIN D (25,OH) (11/14/2023 9:59 EDT) 25OH Vitamin D Tot 15(L) 30 - 100 ng/mL 11/14/2023 11:19 EDT [facility] Blood VENOUS BLOOD / Unknown Venipuncture / Unknown 11/14/2023 9:59 EDT 11/14/2023 10:23 EDT us Sanam Kwame CHEMISTRY & BLOOD GAS ORDERABLES Final Result [facility] [address] [place] [address] * (ABNORMAL) COMPLETE BLOOD COUNT (11/14/2023 9:59 EDT) WBC 9.00 4.00 - 12.40 K/cmm 11/14/2023 10:49 [facility] RBC 5.97(H) 3.86 - 5.04 M/cmm 11/14/2023 10:49 [facility] Hemoglobin 12.5 11.6 - 15.2 g/dL 11/14/2023 10:49 [facility] HCT 42.2 34.9 - 44.4 % 11/14/2023 10:49 [facility] MCV 71(L) 81 - 98 fL 11/14/2023 10:49 [facility] MCH 20.9(L) 26.7 - 33.3 pg 11/14/2023 10:49 [facility] Hypochromia 2+ 11/14/2023 10:49 [facility] MCHC 29.6(L) 32.1 - 35.9 g/dL 11/14/2023 10:49 [facility] RDW-CV 17.0(H) <14.7 % 11/14/2023 10:49 [facility] RDW-SD 41.0 <50.4 fl 11/14/2023 10:49 [facility] Anisocytosis 1+ 11/14/2023 10:49 [facility] PLT 386(H) 141 - 377 K/cmm 11/14/2023 10:49 [facility] MPV 10.8 9.5 - 12.7 fL 11/14/2023 10:49 [facility] Blood VENOUS BLOOD / Unknown Venipuncture / Unknown 11/14/2023 9:59 EDT 11/14/2023 10:46 EDT us Sanam Kwame HEMATOLOGY & PF4 ORDERABLES Anali l Result [facility] [address] [place] [address] * (ABNORMAL) HEMOGLOBIN A1C (11/14/2023 9:59 EDT) Hemoglobin A1c 11.4(H) <5.7 % 11/14/2023 23:20 [facility] Comment: Glycemic Status References: Normal: ??<5.7% Pre-Diabetes: ??5.7% - 6.4% Diagnostic of Diabetes: ??> or = 6.5% (if confirmed) Est Avg Glucose 280 mg/dL 23:20 [facility] Comment:The eAG represents t he A1c result expressed as average glucose in mg/dL. Blood VENOUS BLOOD / Unknown Venipuncture / Unknown 11/14/2023 9:59 EDT 11/14/2023 10:46 EDT us Sanam Kwame CHEMISTRY & BLOOD GAS ORDERABLES Final Result [facility] [address] [id number] * (ABNORMAL) COMPREHENSIVE METABOLIC PANEL (CMP) (11/14/2023 9:59 EDT) Sodium 137 136 - 145 mmol/L 11/14/2023 11:00 [facility] Potassium 4.4 3.5 - 5.0 mmol/L 11/14/2023 11:00 [facility] Chloride 103 96 - 110 mmol/L 11/14/2023 11:00 [facility] CO2 Total 25 22 - 32 mmol/L 11/14/2023 11:00 [facility] Glucose 212(H) 70 - 99 mg/dl 11/14/2023 11:00 [facility] BUN 15 10 - 26 mg/dL 11/14/2023 11:00 [facility] Creatinine 0.47(L) 0.52 - 1.04 mg/dL 11/14/2023 11:00 [facility] eGFR 131 >60 mL/min/1.7 3m2 11/14/2023 11:00 [facility] Total Protein 7.2 6.3 - 8.2 g/dL 11/14/2023 11:00 [facility] Albumin 4.0 3.4 - 4.9 g/dL 11/14/2023 11:00 [facility] Alkaline Phosphatase 116 38 - 126 U/L 11/14/2023 11:00 [facility] AST 19 15 - 46 U/L 11/14/2023 11:00 EDT [facility] ALT 22 <35 U/L 11/14/2023 11:00 EDT [facility] Bilirubin, Total <0.5 <1.4 mg/dL 11/14/19 11:00 EDT [facility] Calcium 9.2 8.5 - 10.5 mg/dL 11/14/2023 11:00 EDT [facility] Albumin/Globulin Ratio 1.3 1.0 - 2.5 11/14/2023 11:00 EDT [facility] Anion Gap 9 5 - 14 mmol/L 11/14/2023 11:00 EDT [facility] Blood VENOUS BLOOD / Unknown Venipuncture / Unknown 11/14/2023 9:59 EDT 11/14/2023 10:23 EDT us Sanam Kwame CHEMISTRY & BLOOD GAS ORDERABLES Final Result Performing Organization Address City/State/[facility] Co de Phone Number [facility] [address] [place] [phone] from Last [address] [place] [address] [place] [address] Care Teams Party Plan Salesperson Relationship Specialty Start Date End Date Sanam Puente [address] [facility] [place] [phone] PCP - General Family Medicine - Primary Care 09/29/23
--- OUTSIDE RECORDS SUMMARY | 2024-01-22 13:29 | XMS_ITS | Encounter Summary ---
Author Organization [facility] Address [address] [place] [address] Care Team Providers Care Professional Development Instructor Name Role Phone Out Of Area, Pcp-Mp Primary Care Provider Verónica lopez Reason for Visit * Reason Comments Wound Check Fell d/t ice on w morning resulting to lac over L elbow. Area now feels sore and pt noticed puss coming out of wound. No other injuries from fall. Encounter Details Date Type Department Care Team (Late st Contact Info) Description 05/20/2023 16:57 EDT - 05/20/2023 17:53 EDT Emergency [facility] Emergency Department [address] [place] [address] Cellulitis of left elbow (Primary Dx) Discharge Disposition: Home or Self Care Social [...] Sign Reading Time Taken Comments Blood Pressure 143/94 05/20/2023 1647 EDT Pulse 88 05/20/2023 1647 EDT Temperature 37.2 ??C (99 ??F) 05/20/2023 1647 EDT Respiratory Rate 16 05/20/2023 1647 EDT Oxygen Saturation 100% 05/20/2023 1647 EDT Inhaled Oxygen Concentration - - Weight 111.1 kg (245 lb) 05/20/2023 1647 EDT Height 165.1 cm (5' 5) 05/20/2023 1647 EDT Body Mass Index 40.77 05/20/2023 1647 EDT documented in this encounter Functional Status * Are you deaf or do you have serious difficulty hearing? Answer Date of Assessment Author No 01/14/2023 13:24 Dora Eisenberg RN documented as of this encounter Discharge Instructions * Discharge Instructions* Tushar Davalos PA-C - 05/20/2023 17:44 EDT You were seen today for an early cellulitis of the left elbow after sustaining a fall last . Keep the wound clean and dry. We are treating you with a round of antibiotics to help prevent infection from taking further hold and becoming systemic. documented in this encounter Medications at Time of Discharge traMADol (ULTRAM) 50 mg tablet Take 1 Tablet by mouth every 6 hours as needed for Pain. Daily Max: 200 mg 6 Tablet 01/14/2023 cephalexin (KEFLEX) 500 mg capsule Take 1 Capsule by mouth 4 times daily for 7 days. 28 Capsule 05/20/2023 05/27/2023 documented as of this encounter Ordered Prescriptions Prescription Sig Dispense Quantity Refills Last Filled Start Date End Date cephalexin (KEFLEX) 500 mg capsule Take 1 Capsule by mouth 4 times daily for 7 days. 28 Capsule 05/20/2023 documented in this encounter Discharge Disposition Disposition Code Departure Means Destination Comment s Home or Self Senior Care documented in this encounter ED Notes * Sydney Melendrez RN - 05/20/2023 175 EDT Bacitracin, telfa and gauze wrap applied. No questions or concerns regarding wound care. * Tushar Davalos PA-C - 05/20/20234 EDT Images from the original note were not included. Emergency Department Visit Medical Decision Making 27-year-old diabetic female presenting to the ED with a wound to her left elbow incurred on Saturday after slipping and falling on ice. Denies any fevers or chills. Does endorse some redness, tenderness and swelling. On exam she has swelling and erythema with some tenderness on palpation. Range of motion is intact. No fluctuance to suggest fluid collection. No streaking proximally. She was treated with antibiotics and encouraged to follow-up with a PCP. Medical Decision Making Problems Addressed: Cellulitis of left elbow: complicated acute illness or injury Risk Prescription drug management. Final diagnoses: Cellulitis of left elbow Disposition: Discharged Chief complaint: Left elbow pain HPI Paulina Marte is a 27 y.o. female with history of type 2 diabetes who presents to the ED for complaints of left elbow pain. Patient states she fell on Saturday causing a laceration to her left elbow.States she was walking on ice when she slipped and fell. Denies any other injuries. She washed out the wound at home but has noticed it has become red and swollen. She denies any change in range of motion to her left elbow. Denies any fevers or chills. History was provided by: Patient Records reviewed include: ED note dated 01/14/2023 Patient's pertinent PMH, FH, SH were reviewed and edited as necessary. Nursing notes reviewed. A medical screening exam was performed. Physical Exam BP (!) 143/94 Pulse 88 Temp 37.2 ??C (99 ??F) (Temporal) Resp 16 Ht 165.1 cm (65) Wt (!)111.1 kg (245 lb) SpO2 100% BMI 40.77 kg/m?? Physical Exam Vitals and nursing note reviewed. Constitutional: General: She is not in acute distress. Appearance: Normal appearance. HENT: Head: Normocephalic. Nose: Nose normal. Mouth/Throat: Mouth: Mucous membranes are moist. Eyes: Extraocular Movements: Extraocular movements intact. Pupils: Pupils are equal, round, and reactive to light. Cardiovascular: Rate and Rhythm: Normal rate. Pulses: Normal pulses. Pulmonary: Effort: Pulmonary effort is normal. No respiratory distress. Musculoskeletal: General: Swelling and tenderness present. No deformity. Normal range of motion. Cervical back: Normal range of motion and neck supple. Comments: No streaking proximally. Normal range of motion of the left elbow. No fluctuance when palpated. Skin: General: Skin is warm and dry. Neurological: General: No focal deficit present. Mental Status: She is alert and oriented to person, place, and time. Psychiatric: Mood and Affect: Mood normal. Behavior: Behavior normal. Procedures Procedures documented in this encounter Plan of Treatment Not on file documented as of this encounter Visit Diagnoses Diagnosis Cellulitis of left elbow- Primary documented in this encounter Administered Medications Inactive Administered Medications - up to 3 most recent administrations Medication Order MAR Action Action Date Dose Rate Site cephalexin (KEFLEX) capsule 500 mg 500 mg, oral, NOW X1, 1 dose, On 05/20/23 at 1800, STAT Given 05/20/2023 17:43 EDT 500 mg documented in this encounter Active and Recently Administered Medications Times are shown in EDT. Scheduled Medication Order 05/18/2023 05/19/2023 05/20/2023 cephalexin (KEFLEX) capsule 500 mg (COMPLETED) 500 mg, oral, NOW X1, 1 dose, On Sat05/20/23 at 1800, STAT 1743 (Given - Provid er: Sydney Melendrez RN) documented in this encounter Orders Medications Ordered That Roman ht Not Have Been Administered Count Last Ordered Date First Ordered Date cephalexin (KEFLEX) capsule 500 mg 1 2023 documented in this encounter Care Teams Professional Development Instructor Relationship Specialty Start Date End Date Out Of Area, Pcp-Mp PCP - General 01/14/23 09/28/23 documented as of this encounter
--- OUTSIDE RECORDS SUMMARY | 2024-01-22 13:29 | XMS_ITS | Encounter Summary ---
Author Organization [facility] Address [address] [place] [address] Care Team Providers Care Lumber Stacker Name Role Phone Sanam Puente Primary Care Provider [phone] Reason for Visit * Reason Comments Shoulder Pain Onset 2 days ago, no known injury. Started hurting at work Encounter Details Date Type Department Care Team (Late st Contact Info) Description 09/29/2023 10:28 EDT - 09/29/2023 13:43 EDT Emergency [facility] Emergency Department [address] [place] [address] Axel Cook MD [address] [place] [address] Shoulder strain, left, initial encounter (Primary Dx) Discharge Disposition: Home or Self [...] EDT Inhaled Oxygen Concentration - - Weight - - Height - - Body Mass Index - - documented in this encounter Functional Status * Are you deaf or do you have serious difficulty hearing? Answer Date of Assessment Author No 01/14/2023 13:24 Dora Eisenberg RN documented as of this encounter Discharge Instructions * Discharge Instructions* Axel Cook MD - 09/29/2023 12:59 EDT You were seen today for left shoulder pain. Shoulder x-ray shows no fracture, no dislocation, no calcium on the tendon I suspect this is muscle strain of the shoulder. Recommend ice, heat, ibuprofen 600 mg every 6 hours with food, Tylenol 1000 mg every 4 hours not toexceed 3000 mg 24 hours You should follow-up with primary care provider to determine if physical therapy may be of benefit if it does not resolve over the next few days. * Attachments The following attachments cannot be sent through Care Everywhere. * Shoulder Sprain (Kazakh) documented in this encounter Medications at Time of Discharge atorvastatin (LIPITOR) 20 mg tablet Take 1 Tablet by mouth daily. empagliflozin (JARDIANCE) 25 mg tablet Take 1 Tablet by mouth daily. norethindrone-eth inyl estradiol (NECON) 0.5-35 mg-mcg per tablet Take 1 Tablet by mouth daily. traMADol (ULTRAM) 50 mg tablet Take 1 Tablet by mouth every 6 hours as needed for Pain. Daily Max: 200 mg 6 Tablet 01/14/2023 documented as of this encounter Discharge Disposition Disposition Code Departure Means Destination Comment s Home or Self Shelter documented in this encounter ED Notes * Axel Cook MD - 09/29/2023 1022 EDT Emergency Department Visit 28-year-old female with left shoulder pain, concern for possible tendon injury, calcific tendinitis, less likely dislocation or fracture, on exam range of motion shows some discomfort perfusion appears normal, sensation, motor function intact. Clinically does not appear to be traumatic or infectious process. Patient received Tylenol and IM Toradol with modest relief. Shoulder x-ray shows no fracture, no dislocation, no obvious calcific tendinitis Suspect this is muscle strain of the shoulder. Recommend ice, heat, ibuprofen 600 mg every 6 hours with food, Tylenol 1000 mg every 4 hours not toexceed 3000 mg 24 hours Patient should follow-up with primary care provider to determine if physical therapy may be of benefit if it does not resolve over the next few days. Patient given note for 2 days off of work. Diagnosis, lab results, other ancillary study results and discharge instructions/medications and plan for followup were discussed with the pt and/or the family. Indications for emergent return and re-evaluation were also explained. All questions were answered and the pt/family understands and agrees with the current plan. Medical Decision Making Imaging (independent interpretation) of the X-ray: No obvious fracture or dislocation, I do not appreciate calcific tendinosis. Medical Decision Making Problems Addressed: Shoulder strain, left, initial encounter: complicated acute illness or injury Amount and/or Complexity of Data Reviewed Radiology: ordered. Risk OTC drugs. Prescription drug management. Final diagnoses: Shoulder strain, left, initial encounter Disposition: Discharged Chief complaint: Left shoulder pain ANITRA Marte is a 28 y.o. female with medically managed type 2 diabetes mellitus, who presents to the ED for complaints of left shoulder pain, no history of trauma. Pain started about a month ago and is described as a soreness from the anterior aspect of the top of the shoulder towards the biceps muscle, it was intermittent in nature and sometimes she notices more at work when she is using her shoulder. Occasionally she would notice sharp pain that went from the anterior shoulder down the arm to the biceps area however, 2 days ago while at work, she noted that the sharp pain persisted and isconstant. It seems worse with activity, last night she had it constantly at night which interfered with her sleep. She denies weakness states occasionally she has tingling of all her fingers. Notes no redness or swelling, no fevers or tick bites. Denies previous history of shoulder injury Ibuprofen been used with modest relief History was provided by: Patient Records reviewed include: Triage note, vital signs Patient's pertinent PMH, FH, SH were reviewed and edited as necessary. Nursing notes reviewed. A medical screening exam was performed. Physical Exam BP 141/85 Pulse 89 Temp 36.5 ??C (97.7 ??F) Resp 15 SpO2 99% Physical Exam Nurses notes and vital signs were reviewed The medical screening exam was performed GEN: Well-appearing, awake and alert, nontoxic HEENT: NC/AT, EOMI, external ears normal, nares clear, OP with MMM Neck: Supple, nontender full range of motion Chest: NT, CTA B CAR:RRR, no murmur EXT: Left shoulder: No obvious deformity, no redness, no warmth, no swelling, patient has mild discomfort with extension of the shoulder, also notes increased pain with abduction, and internal and external rotation , axillary nerve sensation intact, distal perfusion distally perfusion is normal with normal radial and ulnar pulses, with normal capillary refill. Sensory and motor testing of the radial, median, and ulnar nerve at the level of the wrist and hand is normal. Neuro:A/O x 3, no focal weakness, moves all extremities x4, normal gait observed Procedures Procedures documented in this encounter Plan of Treatment Not on file documented as of this encounter Procedures Procedure Name Priority Date/Time Associated Diagnosis Comments XR SHOULDER LEFT 2 OR MORE VIEWS STAT 09/29/2023 11:54 EDT documented in this encounter Results * XR SHOULDER LEFT 2 OR MORE VIEWS (09/29/2023 11:54 EDT) Anatomical Region Laterality Modality Left Computed Radiogr aphy 09/29/2023 11:3 6 EDT Impressions 09/29/2023 12:01 EDT Normal shoulder THIS DOCUMENT HAS BEEN ELECTRONICALLY SIGNED BY GABRIEL MARTINEZ MD FOR ANY QUESTIONS OR CONCERNS REGARDING THIS REPORT PLEASE CALL [facility] AT [phone] Narrative 09/29/2023 12:01 EDT PROCEDURE INFORMATION: Exam: XR Left Shoulder Exam date and time: 09/29/2023 11:36 AM Age: 28 years old Clinical indication: Pain; Shoulder; Left; Additional info: Atraumatic pain TECHNIQUE: Imaging protocol: Radiologic exam of the left shoulder. Views: 2 or more views. COMPARISON: No relevant prior studies available. FINDINGS: Bones/joints: Glenohumeral and acromioclavicular joints are intact. Acromial humeral interval is maintained. Soft tissues: Normal. No calcification. Procedure Note Gabriel Martinez MD - 09/29/2023 PROCEDURE INFORMATION: Exam: XR Left Shoulder Exam date and time: 09/29/2023 11:36 AM Age: 28 years old Clinical indication: Pain; Shoulder; Left; Additional info: Atraumatic pain TECHNIQUE: Imaging protocol: Radiologic exam of the left shoulder. Views: 2 or more views. COMPARISON: No relevant prior studies available. FINDINGS: Bones/joints: Glenohumeral and acromioclavicular joints are intact. Acromial humeral interval is maintained. Soft tissues: Normal. No calcification. IMPRESSION Normal shoulder THIS DOCUMENT HAS BEEN ELECTRONICALLY SIGNED BY GABRIEL MARTINEZ MD FOR ANY QUESTIONS OR CONCERNS REGARDING THIS REPORT PLEASE CALL [facility] [phone] Axel Cook MD IMG DIAGNOSTIC IMAGING O RDERABLES Final Result documented in this encounter Visit Diagnoses Diagnosis Shoulder strain, left, initial encounter- Primary documented in this encounter Administered Medications Inactive Administered Medications - up to 3 most recent administrations Medication Order MAR Action Action Date Dose Rate Site acetaminophen (TYLENOL) tablet 975 mg 975 mg (rounded from 1,000 mg), oral, NOW X1, 1 dose, On 09/29/23 at 1130, Routine Given 09/29/2023 11:35 EDT 975 mg ketOROLAC (TORADOL) injection 30 mg 30 mg, intramuscular, NOW X1, 1 dose, On 09/29/23 at 1145, Routine Given 09/29/2023 11:36 EDT 30 mg documented in this encounter Active and Recently Administered Medications Times are shown in EDT. Scheduled Medication Order 09/27/2023 09/28/2023 09/29/2023 acetaminophen (TYLENOL) tablet 975 mg (COMPLETED) 975 mg (rounded from 1,000 mg), oral, NOW X1, 1 dose, On 09/29/23 at 1130, Routine 1135 (Given - Provid er: Octavio Toure RN) ketOROLAC (TORADOL) injection 30 mg (COMPLETED) 30 mg, intramuscular, NOW X1, 1 dose, On 09/29/23 at 1145, Routine 1136 (Given - Provid er: Octavio Toure RN) documented in this encounter Orders Medications Ordered That Roman ht Not Have Been Administered Count Last Ordered Date First Ordered Date ibuprofen (MOTRIN) tablet 600 mg 1 09/29/19 documented in this encounter Care Teams Lumber Stacker Relationship Specialty Start Date End Date Felicia Puentegail [address] [place] [id number] PCP - General Family Medicine - Primary Care 09/29/23 documented as of this encounter
--- OUTSIDE RECORDS SUMMARY | 2024-01-22 13:29 | XMS_ITS | Referral Summary ---
Author Organization [facility] Address [address] [place] [address] Care Team Providers Care [employer] Music Teacher Name Role Phone Sanam Puente Primary Care Provider [phone] Encounters Date Type Department Care Team Description 11/14/2023 9:55 EDT Phlebotomy Only [facility] - Outpatient Phlebotomy Drawing [address], [place] [id number] Lab, [facility] [place] [facility] Op Phlebotomy Vitamin D deficiency, unspecified; Type 2 diabetes mellitus without complications ([facility]); Anemia, unspecified from Last 3 Months Allergies No known active allergies Medications traMADol (ULTRAM) 50 mg tablet Take 1 Tablet by mouth every 6 hours as needed for Pain. Daily Max: 200 mg 6 Tablet Active Additional Information Patient not taking.Reported on [...] hyperglycemia, without long-term current use of insulin ([facility]) 07/25/2023 Hyperlipidemia 07/25/2023 Immunizations Name Administration Dates Next Due Covid-19 mRNA Vaccine (MODER NA COVID-19) PF 0.5 ml IM (12 yrs+) 07/20/2021 Covid-19 mRNA Vaccine (PFIZE R COVID-19) PF 0.3 ml IM (12 yrs+) 02/10/2021,06/15/2020,05/25/2020 Covid-19 mRNA-LNP Bivalent V accine ([employer] BIVALENT VACCINE) PF 0.3 mL IM (12 yrs+) 07/25/2022 Social History Tobacco Use Types Packs/Day Years [...] 16:58 EDT Sexual Orientation Not on file Last Filed Vital Signs Vital Sign Reading [...] Body Mass Index 40.77 05/20/2023 1647 EDT Functional Status * Are you deaf or do you have serious difficulty hearing? Answer Date of Assessment Author No 01/14/2023 13:24 EST Dora Lin, RN Plan of Treatment Not on file Procedures Procedure Name Priority Date/Time Associated Diagnosis Comments COMPLETE BLOOD COUNT Routine 11/14/2023 9:59 EDT Anemia, unspecified COMPREHENSIVE METABOLIC PANEL (CMP) Routine 11/14/2023 9:59 EDT Type 2 diabetes mellitus without complications (HCC-CMS) HEMOGLOBIN A1C Routine 11/14/2023 9:59 EDT Type 2 diabetes mellitus without complications (HCC-CMS) VITAMIN D (25,OH) Routine 11/14/2023 9:5 9 EDT Vitamin D deficiency, unspecified from Last 3 Months Results * (ABNORMAL) VITAMIN D (25,OH) (11/14/2023 9:59 EDT) Pathologist [facility] 25OH Vitamin D Tot 15(L) 30 - 100 ng/mL 11/14/2023 11:19 [facility] Blood VENOUS BLOOD / Unknown Venipuncture / Unknown 11/14/2023 9:59 EDT 11/14/2023 10:23 EDT Sanam Kwame CHEMISTRY & BLOOD GAS ORDERABLES Final Result [facility] [address] [place] [address] * (ABNORMAL) COMPLETE BLOOD COUNT (11/14/2023 9:59 EDT) [facility] WBC 9.00 4.00 - 12.40 K/cmm 11/14/2023 10:49 [facility] RBC 5.97(H) 3.86 - 5.04 M/cmm 11/14/2023 10:49 [facility] Hemoglobin 12.5 11.6 - 15.2 g/dL 11/14/2023 10:49 [facility] HCT 42.2 34.9 - 44.4 % 11/14/2023 10:49 [facility] MCV 71(L) 81 - 98 fL 11/14/2023 10:49 [facility] MCH 20.9(L) 26.7 - 33.3 pg 11/14/2023 10:49 [facility] Hypochromia 2+ 11/14/2023 10:49 [facility] MCHC 29.6(L) 32.1 - 35.9 g/dL 11/14/2023 10:49 [facility] RDW-CV 17.0(H) <14.7 % 11/14/2023 10:49 EDT [facility] RDW-SD 41.0 <50.4 fl 11/14/2023 10:49 [facility] Anisocytosis 1+ 11/14/2023 10:49 [facility] PLT 386(H) 141 - 377 K/cmm 11/14/2023 10:49 [facility] MPV 10.8 9.5 - 12.7 fL 11/14/2023 10:49 [facility] Blood VENOUS BLOOD / Unknown Venipuncture / Unknown 11/14/2023 9:59 EDT 11/14/2023 10:46 EDT us Sanam Kwame HEMATOLOGY & PF4 ORDERABLES Anali l Result Performing Organization Address City/[facility]/ZIP Co de Phone Number [facility] [address] [place] [address] * (ABNORMAL) HEMOGLOBIN A1C (11/14/2023 9:59 EDT) Hemoglobin A1c 11.4(H) <5.7 % 11/14/2023 23:20 [facility] Comment: Glycemic Status References: Normal: ??<5.7% Pre-Diabetes: ??5.7% - 6.4% Diagnostic of Diabetes: ??> or = 6.5% (if confirmed) Est Avg Glucose 280 mg/dL 23:20 [facility] Comment:The eAG represents t he A1c result expressed as average glucose in mg/dL. Blood VENOUS BLOOD / Unknown Venipuncture / Unknown 11/14/2023 9:59 EDT 11/14/2023 10:46 EDT us Sanam Kwame CHEMISTRY & BLOOD GAS ORDERABLES Final Result [facility] [address] [place], [place] [id number] * (ABNORMAL) COMPREHENSIVE METABOLIC PANEL (CMP) (11/14/2023 9:59 EDT) Sodium 137 136 - 145 mmol/L 11/14/2023 11:00 [facility] Potassium 4.4 3.5 - 5.0 mmol/L 11/14/2023 11:00 [facility] Chloride 103 96 - 110 mmol/L 11/14/2023 11:00 [facility] CO2 Total 25 22 - 32 mmol/L 11/14/2023 11:00 [facility] Glucose 212(H) 70 - 99 mg/dl 11/14/2023 11:00 [facility] BUN 15 10 - 26 mg/dL 11/14/2023 11:00 [facility] Creatinine 0.47(L) 0.52 - 1.04 mg/dL 11/14/2023 11:00 [facility] eGFR 131 >60 mL/min/1.7 3m2 11/14/2023 11:00 [facility] Total Protein 7.2 6.3 - 8.2 g/dL 11/14/2023 11:00 [facility] Albumin 4.0 3.4 - 4.9 g/dL 11/14/2023 11:00 [facility] Alkaline Phosphatase 116 38 - 126 U/L 11/14/2023 11:00 [facility] AST 19 15 - 46 U/L 11/14/2023 11:00 [facility] ALT 22 <35 U/L 11/14/2023 11:00 [facility] Bilirubin, Total <0.5 <1.4 mg/dL 11/14/19 11:00 [facility] Calcium 9.2 8.5 - 10.5 mg/dL 11/14/2023 11:00 [facility] Albumin/Globulin Ratio 1.3 1.0 - 2.5 11/14/2023 11:00 EDT [facility] Anion Gap 9 5 - 14 mmol/L 11/14/2023 11:00 EDT [facility] Blood VENOUS BLOOD / Unknown Venipuncture / Unknown 11/14/2023 9:59 EDT 11/14/2023 10:23 EDT Sanam Kwame CHEMISTRY & BLOOD GAS ORDERABLES Final Result [facility] [address] [place] [address] from Last [address] [place] [place] [address] Care Teams Middle [employer] Music Teacher Relationship Specialty Start Date End Date Sanam Puente [address] [place] [id number] PCP - General Family Medicine - Primary Care 09/29/23
--- OUTSIDE RECORDS SUMMARY | 2024-01-22 13:29 | XMS_ITS | Encounter Summary ---
Author Organization [facility] Address [address] [place] [address] Care Team Providers Care Boring Machine Set Up Operator Name Role Phone Out Of Area, Pcp-Mp Primary Care Provider Verónica lopez Encounter Details Date Type Department Care Team (Late st Contact Info) Description 07/25/[address] [facility] Endocrinology [address] [place] [address] Le Rangel RN Social History Tobacco Use Types Packs/Day Years [...] Lin RN documented as of this encounter Progress Notes * Le Rangel RN - 07/25/2023 1450 EDT . documented in this encounter Plan of Treatment Not on file documented as of this encounter Visit Diagnoses Not on filedocumented in this encounter Historical Medications * This list may reflect changes made after this encounter. norethindrone-eth inyl estradiol (NECON) 0.5-35 mg-mcg per tablet Take 1 Tablet by mouth daily. empagliflozin (JARDIANCE) 25 mg tablet Take 1 Tablet by mouth daily. atorvastatin (LIPITOR) 20 mg tablet Take 1 Tablet by mouth daily. added in this encounter Care Teams Boring Machine Set Up Operator Relationship Specialty Start Date End Date Out Of Area, Pcp-Mp PCP - General 01/14/23 09/28/23 documented as of this encounter
--- OUTSIDE RECORDS SUMMARY | 2024-01-22 13:29 | XMS_ITS | Encounter Summary ---
Author Organization [facility] Address [address] [place] [address] Care Team Providers Care Travel Registered Nurse Pacu Name Role Phone Out Of Area, Pcp-Mp Primary Care Provider Verónica lopez Encounter Details Date Type Department Care Team (Latest Contact Info) Description 05/20/2023 Travel Social History Tobacco Use Types Packs/Day Years [...] Diagnoses Not on filedocumented in this encounter Care Teams Travel Registered Nurse Pacu Relationship Specialty Start Date End Date Out Of Area, Pcp-Mp PCP - General 01/14/23 09/28/23 documented as of this encounter
--- OUTSIDE RECORDS SUMMARY | 2024-01-22 13:29 | XMS_ITS | Encounter Summary ---
Author Organization [facility] Address [address] [place] [address] Care Team Providers Care Resume Writer Name Role Phone Out Of Area, Pcp-Mp Primary Care Provider Verónica lopez Encounter Details Date Type Department Care Team (Latest Contact Info) Description 01/14/2023 Travel Social History Tobacco Use Types Packs/Day [...] Eisenberg RN documented as of this encounter Plan of Treatment Not on file documented as of this encounter Visit Diagnoses Not on filedocumented in this encounter Care Teams Resume Writer Relationship Specialty Start Date End Date Out Of Area, Pcp-Mp PCP - General 01/14/23 09/28/23 documented as of this encounter
[2024-01-22 15:53] LABS: COMMENT (LAB VIEW ONLY) 31.53 mg/dL
== END 2024-01-22 13:22 | disposition home or self-care (01) ==
LOC: NCHCN 13:21
PROVIDERS: PCP Family Medicine; Visit Provider Family Medicine
DX: E11.9 Type 2 diabetes mellitus without complications (principal)
CPT/HCPCS: 82043; 82570

== ENCOUNTER 2024-09-17 11:50 | Outpatient (REF) | payer OTHER, SELFPAY ==
--- NOTE | 2024-09-17 13:45 | PAPFT_PTH ---
PATIENT: Paulina Marte LOC: [facility] U#:[id number] AGE/SX: 29/F ROOM: RE09/17/[address]: REYES: 1995 BED: DIS: 09/17/2024 SPEC #: [id number] RECD: 09/18/24 12:36 STATUS: GERARDO OCONNOR #: [id number] CRISTOPHER: 09/17/24 13:[address]: Sanam Puente DEPT: [facility] Cytology RECD BY: Teagan Renteria Tissues: 1 - CX/ENDOCX FOR PAP SMEARS Procedures: PAP THIN PREP/UVM Screening HPV DNA PROBE Comments: [id number] (HPV 16 & 18/45) (CHLAMYDIA/GC)
[2024-09-21 12:54] LABS: Chlamydia Result Negative (Negative); GC Result Negative (Negative)
== END 2024-09-17 11:51 | disposition home or self-care (01) ==
LOC: LBN 11:50
PROVIDERS: PCP Family Medicine; Visit Provider Family Medicine
DX: Z12.4 Encounter for screening for malignant neoplasm of cervix (principal); Z00.00 Encounter for general adult medical examination without abnormal findings
CPT/HCPCS: 87491; 87591; 88142; 87624